=== PATIENT | female | born 1990 | race Caucasian/White ===

== ENCOUNTER 2023-06-01 09:26 | Emergency (ER) | payer OTHER ==
[~2023-06-01] VITALS: Ht 154.9 cm; Wt 99.3 kg
[2023-06-01 09:43] VITALS: BP 114/80; PULSE 85; RESP 15; TEMP 96.9; O2SAT 100
[2023-06-01] MEDS ORDERED: ONDANSETRON 4 MG ODT PO ONE (10:25)
[2023-06-01] MEDS ORDERED: DIPHENOXYLATE /ATROPINE 2.5 MG TAB PO ONE (10:25)
[2023-06-01] MEDS ORDERED: ACETAMINOPHEN 325 MG TAB PO ONE (10:25)
[2023-06-01] MEDS ORDERED: FAMOTIDINE 20 MG TAB PO ONE (10:25)
[2023-06-01] MEDS ORDERED: LOPE-143 PO (10:42)
[2023-06-01] MEDS ORDERED: ONDA-188 PO (10:42)
[2023-06-01 11:04] VITALS: BP 108/73; PULSE 81; RESP 16; O2SAT 98
[2023-06-01 11:52] LABS: FLU A ANTIGEN negative (NEGATIVE); FLU B ANTIGEN negative (NEGATIVE)
== END 2023-06-01 11:33 | disposition home or self-care (01) ==
LOC: MED 09:26
DX: R19.7 Diarrhea, unspecified (principal); Z20.822 Contact with and (suspected) exposure to COVID-19; R11.10 Vomiting, unspecified; R10.12 Left upper quadrant pain; R10.11 Right upper quadrant pain; Z79.899 Other long term (current) drug therapy
CPT/HCPCS: 81025; 87426; 87804; 99284; Q0162

== ENCOUNTER 2023-11-27 21:46 | Emergency (ER) | payer OTHER ==
[~2023-11-27] VITALS: Ht 154.9 cm; Wt 99.8 kg
[~2023-11-27 21:46] MED LIST: LOPE-143 PO; ONDA-188 PO
[2023-11-27 22:09] VITALS: BP 120/78; PULSE 68; RESP 16; TEMP 97.6; O2SAT 100
[2023-11-28 01:27] LABS: BASOPHILS # (AUTO) 0.1 K/uL (0.00-0.22); BASOPHILS % (AUTO) 0.9 % (0.0-2.0); EOSINOPHILS # (AUTO) 0.2 K/uL (0-0.4); EOSINOPHILS % (AUTO) 2.7 % (0.0-4.0); HEMATOCRIT 33.2 % (36-48); LYMPHOCYTES # (AUTO) 2.8 K/uL (2.5-16.5); LYMPHOCYTES % (AUTO) 34.8 % (20.5-51.1); MEAN CORPUSCULAR HEMOGLOBIN 27 pg (27-31); MEAN CORPUSCULAR HGB CONC 33 g/dL (33-37); MEAN CORPUSCULAR VOLUME 82.5 fL (80-94); MONOCYTES # (AUTO) 0.6 K/uL (0.8-1.0); MONOCYTES % (AUTO) 7.3 % (1.7-9.3); NEUTROPHILS # (AUTO) 4.4 K/uL (1.8-7.7); NEUTROPHILS % (AUTO) 54.3 % (42.2-75.2); PLATELET COUNT (AUTO) 331 K/uL (140-450); RED BLOOD CELL COUNT(AUTO) 4.03 MIL/uL (4.20-5.40); RED CELL DISTRIBUTION WIDTH 17.7 % (11.6-13.7); WHITE BLOOD COUNT (AUTO) 8.1 K/uL (4.8-10.8)
[2023-11-28 01:40] VITALS: O2SAT 98
[2023-11-28 03:40] VITALS: O2SAT 98
[2023-11-28 05:16] VITALS: O2SAT 98
[2023-11-28] MEDS ORDERED: MEDR10TA PO (05:36)
== END 2023-11-28 06:23 | disposition home or self-care (01) ==
LOC: MED 21:46
DX: N93.8 Other specified abnormal uterine and vaginal bleeding (principal); Z79.899 Other long term (current) drug therapy
CPT/HCPCS: 36415; 76856; 81025; 85025; 86886; 86900; 86901; 99284